=== PATIENT | male | born 1975 | race Caucasian/White ===

== ENCOUNTER 2018-02-14 10:16 | Outpatient (CLI) | payer BC | END 2018-02-14 10:35 | disposition home or self-care (01) | LOC: SLEEP 10:16 | PROVIDERS: ATTEND Nurse Practitioner Family | DX: G47.33 Obstructive sleep apnea (adult) (pediatric) (principal); G47.10 Hypersomnia, unspecified; R06.83 Snoring ==

== ENCOUNTER → 2018-12-11 | Outpatient (CLI) | payer BC ==
[~2018-12-11] MED LIST: CATHETER FLUSH 10 ML SYR IV PRN; HOLD METFORMIN - RECEIVED CONTRAST 20 ML VIAL IV SCH; IOHEXOL 350 MG/ML 100 ML (OMNIPAQUE 350) VIAL IV ONE; NS 100 ML (IVPB) BAG IV ONE
--- NOTE | 2018-12-11 10:43 | Diagnostic Imaging Report ---
PROCEDURE: CT abdomen with and without contrast. TECHNIQUE: Multiple contiguous axial CT images of the abdomen were obtained prior to and after intravenous administration of iodinated contrast. Auto Exposure Controls were utilized during the CT exam to meet ALARA standards for radiation dose reduction. INDICATION: Adrenal nodule noted on outside imaging. No prior studies are available for comparison. The lung bases are clear. Liver contains a tiny low density left lobe measuring 7 mm. This is too small to characterize but may represent a small cyst. Similar low-density right lobe is noted. Gallbladder is unremarkable. There is no biliary ductal dilatation. Pancreas and spleen are unremarkable. The left adrenal gland is unremarkable. The right adrenal gland contains a mass measuring 17 mm. Precontrast Hounsfield unit is -4. Dynamic phase Hounsfield units is 60. The delayed Hounsfield units through the lesion is 33. This gives an absolute washout of approximately 44% and a relative washout of 47%. Relative washouts of greater than 40% are consistent with adenomas. Very low density on precontrast imaging is also consistent with an adenoma. The kidneys are unremarkable. Aorta is nonaneurysmal. No central retroperitoneal or mesenteric lymphadenopathy is seen. Small and large bowel loops are of normal caliber. There is no ascites. Bony structures are nonacute. IMPRESSION: 1. 17 mm right adrenal mass with enhancement characteristics consistent with an adenoma. No other significant abnormality is detected. Dictated by: Dictated on workstation # [id number]
== END ==
LOC: RAD FS 09:12
PROVIDERS: ATTEND Family Medicine
DX: E27.8 Other specified disorders of adrenal gland (principal)
CPT/HCPCS: 74170

== ENCOUNTER → 2019-11-24 | Outpatient (CLI) | payer BC ==
--- NOTE | 2019-11-24 11:09 | Diagnostic Imaging Report ---
PROCEDURE: CT abdomen with and without contrast. TECHNIQUE: Multiple contiguous axial CT images of the abdomen were obtained prior to and after intravenous administration of iodinated contrast. Auto Exposure Controls were utilized during the CT exam to meet ALARA standards for radiation dose reduction. INDICATION: Followup adrenal nodule. FINDINGS: The prior CT abdomen exam of 12/11/2018 noted a 17 mm low density well-circumscribed right adrenal mass. This had enhancement characteristics consistent with an adenoma. On this exam, the adrenal nodule is again identified and does not appear to have changed significantly in size or appearance. This has Hounsfield density units ranging from -15 to -25 and consequently most likely this is a benign process such as an adrenal adenoma. The overall appearance of the abdomen itself is also stable. The liver, spleen, pancreas, left adrenal, kidneys, aorta, inferior vena cava, and gallbladder show no sign of an acute abnormality. The stomach is not well-distended and consequently difficult to assess. The lung bases are clear. The bony excrescence arising from the inner cortex of the left 6th rib seen previously is again evident and no different. The bone windows themselves are unremarkable for a fracture or for a destructive lesion. IMPRESSION: 1. There is no acute abnormality identified. 2. The low density nodule associated with the right adrenal gland seen on the previous study appears stable. Most likely, this is a benign process such as an adrenal adenoma. Dictated by: Dictated on workstation # [id number]
== END ==
LOC: RAD FS 09:53
PROVIDERS: ATTEND Internal Medicine Endocrinology, Diabetes & Metabolism
DX: D35.01 Benign neoplasm of right adrenal gland (principal)
CPT/HCPCS: 74170

== ENCOUNTER 2022-10-11 19:29 | Emergency (ER) | payer BC ==
[~2022-10-11] VITALS: Ht 175.2 cm; Wt 97.3 kg
[2022-10-11] MEDS ORDERED: CLINDAMYCIN 150 MG CAPSULE PO ONE (19:45)
[2022-10-11] MEDS ORDERED: Tetanus/Diphtheria/Pertussis (Acell) ADULT Vaccine 0.5 ML IM ONE (19:45)
[2022-10-11] MEDS ORDERED: CLIN-144 PO (19:49)
--- NOTE | 2022-10-11 19:49 | ED General ---
General Chief Complaint: Skin/Wound Problems Stated Complaint: R RING FINGER SWELLING,NUMBESS Source of Information: Patient Exam Limitations: No Limitations History of Present Illness Date Seen by Provider: Oct 11, 2022 Time Seen by Provider: 19:30 Initial Comments 47-year-old male coming in due to right ring finger swelling and pain. He noticed he thought there was infection a couple days ago, poked it with a needle and did notice some purulent drainage. He is unsure of when his last tetanus vaccine, he believes it is more than 10 years ago. Denies any fevers or systemic symptoms. Allergies and Home Medications Allergies Coded Allergies: No Allergy Information Available (Unverified , 12/11/18) Patient Home Medication List Home Medication List Reviewed: Yes Review of Systems Review of Systems Constitutional: No fever EENTM: no symptoms reported Respiratory: no symptoms reported Cardiovascular: no symptoms reported Gastrointestinal: no symptoms reported Genitourinary: no symptoms reported Musculoskeletal: see HPI Skin: see HPI Psychiatric/Neurological: No Symptoms Reported Past Qvmmrym-Soxfng-Qjyeud Hx Patient Social History Tobacco Use?: No Smoking Status: Never a Smoker Substance use?: No Alcohol Use?: No Past Medical History Surgery/Hospitalization HX: Back surgery, Tonsillectomy Physical Exam Vital Signs Capillary Refill : Height, Weight, BMI Height: '" Weight: lbs. oz. kg; BMI Method: General Appearance: No Apparent Distress, WD/WN Respiratory: No Accessory Muscle Use Cardiovascular: Normal Peripheral Pulses Extremity: Other (Right ring finger with paronychia and purulent drainage noted erythema going just to the DIP joint) Neurologic/Psychiatric: Alert Skin: Normal Color, Warm/Dry Procedures/Interventions I&D : Site: right ring finger Blade Size: 15 Progress Area was prepped with alcohol and the lateral nail fold was elevated with a 15 blade with a very small parallel incision with purulent drainage noted. Patient tolerated this well Progress/Results/Core Measures Suspected Sepsis SIRS Temperature: Pulse: Respiratory Rate: Blood Pressure / Mean: Results/Orders My Orders Orders - NEREIDA DIANE MD Clindamycin Capsule (Clindamycin Capsule (10/11/22 19:45) Dipht/Pertuss(Acell)/Tet Adult (Dipht/Pe (10/11/22 19:45) Vital Signs/I&O Capillary Refill : Progress Note : Progress Note 47-year-old male presenting for paronychia. ABCs were intact and vitals were stable on presentation. The area was cleansed and opened with good drainage noted and patient tolerating this well. Tetanus updated today and given a dose of antibiotics given there is some mild cellulitis going up the finger. Prescription will be sent. I believe he is stable for discharge with outpatient follow-up. He was sent home with strict return precautions Departure Impression Primary Impression: Paronychia Disposition: HOME, SELF-CARE Condition: Stable Departure-Patient Inst. Decision time for Depature: 19:55 Referrals: SELFMANDEEP MD (PCP/Family) Primary Care Physician Patient Instructions: Paronychia (DC) Add. Discharge Instructions: Continue to do hot water soaks several times a day for the next several days while you are trying to express more drainage from it. Take ibuprofen as needed for pain. Try to keep the area clean in the meantime. You will be on antibiotics for the next week. It may be beneficial to take some type of probiotic while on the antibiotic. Scripts Clindamycin HCl (Clindamycin HCl) 300 Mg Capsule 300 MG PO TID for 7 Days, #21 CAP Prov: NEREIDA DIANE MD 10/11/22 Work/School Note: Work Release Form Date Seen in the Emergency Department: Oct 11, 2022 Return to Work: Oct 12, 2022 Restrictions: No Restrictions NEREIDA DIANE MD Oct 11, 2022 19:49
[2022-10-11 19:56] VITALS: BP 164/91
== END 2022-10-11 19:56 | disposition home or self-care (01) ==
LOC: EDUNIT# 19:29 → ER FS 19:31
DX: L03.011 Cellulitis of right finger (principal); Z23 Encounter for immunization
CPT/HCPCS: 90715

== ENCOUNTER 2022-11-28 06:05 | Outpatient (CLI) | payer BC ==
[~2022-11-28] VITALS: Ht 172.7 cm; Wt 99.8 kg
[~2022-11-28 06:05] MED LIST changes: -CATHETER FLUSH 10 ML SYR IV PRN; +CLIN-144 PO; -HOLD METFORMIN - RECEIVED CONTRAST 20 ML VIAL IV SCH; -IOHEXOL 350 MG/ML 100 ML (OMNIPAQUE 350) VIAL IV ONE; -NS 100 ML (IVPB) BAG IV ONE
== END 2022-11-28 09:37 | disposition home or self-care (01) ==
LOC: PREOP 06:05
PROVIDERS: ATTEND Surgery
DX: Z01.818 Encounter for other preprocedural examination (principal)

== ENCOUNTER 2022-12-03 09:32 | Day surgery (SDC) | payer BC ==
[~2022-12-03] VITALS: Ht 172.7 cm; Wt 99.8 kg
[~2022-12-03 09:32] MED LIST changes: +LACTATED RINGERS 1,000 ML 1,000 ML IV STA
[2022-12-03] MEDS ORDERED: HURRICAINE EXT TUBE (BENZOCAINE) XX PRN (09:45)
--- NOTE | 2022-12-03 09:53 | Progress Note-Pre Operative ---
Pre-Operative Progress Note Date of Available H&P: Nov 27, 2022 Date H&P Reviewed: Dec 03, 2022 Time H&P Reviewed: 09:51 History & Physical: H&P Reviewed, Patient Examed, No changes noted Pre-Operative Diagnosis: Screening, ALLYSON KAPOOR DO Dec 03, 2022 09:53
[2022-12-03 10:08] VITALS: BP 127/86
[2022-12-03] MEDS ORDERED: MIDAZOLAM INJ 2 MG/2 ML VIAL ONE (10:22)
[2022-12-03 10:55] VITALS: BP 136/92
--- NOTE | 2022-12-03 10:58 | Progress Note-Post Operative ---
Post-Operative Progess Note Surgeon (s)/Car Restorer (s) Surgeon ALLYSON SALEH DO Car Restorer: Main Madrigal, MSIII Pre-Operative Diagnosis Screening, GERD Post-Operative Diagnosis Moderate Gastritis Hiatal hernia duodenitis Diverticula int hemorrhoids Procedure & Operative Findings Date of Procedure 12/03/22 Procedure Performed/Findings EGD with biopsy Colonoscopy PROCEDURE NOTE: After informed consent was obtained, the patient was brought to the endoscopy suite, placed in bed in left lateral decubitus position. He was administered IV sedation by the CUFF MAKER who then monitored vitals the entire time, heart rate, blood pressure and pulse ox and the scope was inserted down the mouth through the esophagus into the stomach. On the way down, noted some mild esophagitis, took a picture, pushed into the stomach and noted moderate to severe Gastritis. Then pushed past the antrum into the duodenum and the duodenum looked inflamed so I did a biopsy.. Pulled back and did a biopsy of the antrum and the body of the stomach; at the areas of inflammation. I then retroflexed the scope, saw a small grade II AFS hiatal hernia, took a picture of this and then pulled the scope into the GE junction. I took another picture of the hiatal hernia and then did a biopsy of the GE junction. Pushed the scope back into the stomach, suctioned all the air out of the stomach. At this point pulled the scope up the esophagus and out the mouth. Switched camera, switched gloves, went down below and started the colonoscopy. Pushed all the way to about 120 cm and pushed into the cecum, took a picture of appendiceal orifice and noted the ileocecal valve. Then slowly withdrew the scope insufflating to look circumferentially at the cordova starting in the cecum, up the ascending colon to the hepatic flexure, then down the transverse colon, splenic flexure, into the descending colon down and into the sigmoid. I saw some early diverticula and took a picture and then into the rectal vault and retroflexed the scope. Took picture of the internal hemorrhoids. The patient tolerated the procedure and he recovered in the endoscopy suite. Recommended for repeat colonoscopy in 10 years Anesthesia Type IV sedation by CUFF MAKER Estimated Blood Loss Estimated blood loss (mL): scant Specimens/Packing Specimens Removed duodenal bx antral bx body of stomach bx GE jxn bx ALLYSON SALEH DO Dec 03, 2022 10:58
--- NOTE | 2022-12-03 10:59 | Endoscopy Discharge Instruct ---
Endo Procedure/Findings Findings 1.: Gastritis 2.: Hiatal Hernia 3.: Diverticulosis 4.: Internal Hemorrhoids Discharge Instructions - Activity: You might feel a little sleepy until tomorrow. This is due to the medicine you received to relax you. Until tomorrow, you should: NOT drive a car, operate machinery or power tools. NOT drink any alcoholic beverages. NOT make any important decisions or sign importortant papers. Do not return to work until tomorrow, unless otherwise instructed. Resume previous activities tomorrow. Diet: Start by taking liquids. If you tolerate liquids, advance to solid food. 1.: EGD in 1 year 2.: Colonscopy in 10 years Notify Physician - If you experience excessive bleeding, unusual abdominal pain, fever, or chest pain, contact your doctor immediately. Follow-Up: Other Follow up in my office in one week ALLYSON SALEH DO Dec 03, 2022 10:59
[2022-12-03 11:00] VITALS: BP 124/82
[2022-12-03 11:05] VITALS: BP 125/84
--- NOTE | 2022-12-03 11:32 | Anesthesia-General Post-Op ---
MAC Patient Condition Mental Status/LOC: Same as Preop Cardiovascular: Satisfactory Nausea/Vomiting: Absent Respiratory: Satisfactory Pain: Controlled Complications: Absent Post Op Complications Complications None Follow Up Care/Instructions Patient Instructions None needed. Anesthesiology Discharge Order Discharge Order Patient is doing well, no complaints, stable vital signs, no apparent adverse anesthesia problems. No complications reported per nursing. ADELFO MCDONALD CRNA Dec 03, 2022 11:32
[2022-12-03 11:45] VITALS: BP 125/84
== END 2022-12-03 11:45 | disposition home or self-care (01) ==
LOC: ENDO 09:32
PROVIDERS: ATTEND Surgery
DX: K57.30 Diverticulosis of large intestine without perforation or abscess without bleeding (principal); K64.8 Other hemorrhoids; K29.70 Gastritis, unspecified, without bleeding; K44.9 Diaphragmatic hernia without obstruction or gangrene; K29.80 Duodenitis without bleeding; K21.00 Gastro-esophageal reflux disease with esophagitis, without bleeding; K31.89 Other diseases of stomach and duodenum; K26.9 Duodenal ulcer, unspecified as acute or chronic, without hemorrhage or perforation